=== PATIENT | female | born 1945 | race Caucasian/White ===

== ENCOUNTER → 2016-08-04 | Outpatient (CLI) | payer OTHER | LOC: FIMAGING 09:00 | PROVIDERS: ATTEND Physician Assistant | DX: M25.562 Pain in left knee (principal); M23.252 Derangement of posterior horn of lateral meniscus due to old tear or injury, left knee; M25.762 Osteophyte, left knee; M24.10 Other articular cartilage disorders, unspecified site; M76.32 Iliotibial band syndrome, left leg; M22.42 Chondromalacia patellae, left knee; M23.632 Other spontaneous disruption of medial collateral ligament of left knee; R93.6 Abnormal findings on diagnostic imaging of limbs ==

== ENCOUNTER → 2017-03-19 | Outpatient (CLI) | payer OTHER | LOC: FIMAGING 12:44 | PROVIDERS: ATTEND Internal Medicine | DX: Z12.31 Encounter for screening mammogram for malignant neoplasm of breast (principal) | CPT/HCPCS: G0202 ==

== ENCOUNTER 2017-11-21 22:53 | Emergency (ER) | payer OTHER ==
--- NOTE | 2017-11-21 23:33 | EDPHY ---
H & P Time Seen by Provider: 11/21/17 23:23 HPI/ROS: CHIEF COMPLAINT: Bleeding from left ear HISTORY OF PRESENT ILLNESS: 72-year-old female had left ear stapes bone reconstruction today by Dr. Jeramy Magallon with packing placed , woke from a nap this evening noticed blood on the packing. Comes to the ER for evaluation. Pain is controlled. PHYSICAL EXAM (Prior to examination, patient consented to physical exam, hands were washed and my usual and customary physical exam procedures followed) 1) GENERAL: Well-developed, well-nourished, alert and oriented. Appears to be in no acute distress. 2) HEAD: Normocephalic 3) HEENT: sclera anicteric . Packing in place left EAC. Patient will not allow me to remove packing. The packing is saturated. There is no breakthrough bleeding, no dripping.. 4) LUNGS: Breathing comfortably. [ Smoking Status: Never smoked Constitutional: Initial Vital Signs Temperature (C) 36.6 C 11/21/17 23:01 Heart Rate 63 11/21/17 23:01 Respiratory Rate 18 11/21/17 23:01 Blood Pressure 147/76 H 11/21/17 23:01 O2 Sat (%) 92 11/21/17 23:01 O2 Delivery Mode Room Air Allergies/Adverse Reactions: Penicillins Allergy (Unverified 11/21/17 23:04) Home Medications: Medication Instructions Recorded Albuterol Sulfate [Proair Hfa] 8.5 gm IH 11/21/17 Aspirin [Ecotrin] 81 mg PO 11/21/17 Estrogens, Conjugated [Premarin] 0.45 mg PO 11/21/17 Rabeprazole Sodium [Aciphex] 20 mg PO 11/21/17 MDM/Departure - [facility] ED Course/Re-evaluation: 11:38 p.m.: Phone consultation with on-call ENT YAIMA Jane covering for Dr. Jeramy Magallon. The patient's dressing is saturated however does not bleeding through the dressing. He recommended no manipulation of the dressing, no further intervention from the emergency department. The patient's pain is controlled. Today is Friday evening. Follow up with Dr. Jeramy Magallon on Friday. If over the weekend she develops breakthrough bleeding to return to the ER, otherwise to not manipulate dressing. I saw this patient independently based on established practice protocols. Care of patient under supervision of secondary supervising physician Dr Perdue with whom I discussed case. - Depart Disposition: Home, Routine, Self-Care Clinical Impression: Postoperative bleeding left ear Condition: Good Instructions: Postoperative Bleeding (ED) Additional Instructions: Do not manipulate the wound packing. If you develop breakthrough bleeding, if you develop uncontrolled pain, return to the ER. Otherwise follow up with Dr. Jeramy Magallon on Friday Referrals: Jeramy Magallon MD [Medical Doctor] - 11/24/17
[2017-11-21 23:56] VITALS: BP 145/80
== END 2017-11-21 23:50 | disposition home or self-care (01) ==
DX: H95.42 Postprocedural hemorrhage of ear and mastoid process following other procedure (principal); Z79.82 Long term (current) use of aspirin

== ENCOUNTER → 2018-04-13 | Outpatient (CLI) | payer OTHER | LOC: FIMAGING 12:20 | PROVIDERS: ATTEND Internal Medicine | DX: M85.831 Other specified disorders of bone density and structure, right forearm (principal); Z85.3 Personal history of malignant neoplasm of breast; E11.9 Type 2 diabetes mellitus without complications; M85.88 Other specified disorders of bone density and structure, other site ==